=== PATIENT | male | born 1980 | race Caucasian/White ===

== ENCOUNTER 2019-12-05 23:47 | Emergency (ER) | payer SELFPAY ==
[~2019-12-05] VITALS: Ht 193 cm; Wt 81.6 kg
[2019-12-06] MEDS ORDERED: IBUPROFEN 600 MG TAB PO STA (00:25)
== END 2019-12-06 00:45 | disposition home or self-care (01) ==
LOC: ER 23:47
DX: L02.413 Cutaneous abscess of right upper limb (principal); F17.210 Nicotine dependence, cigarettes, uncomplicated
CPT/HCPCS: 99282